=== PATIENT | female | born 1960 | race Caucasian/White ===

== ENCOUNTER 2020-05-02 13:48 | Inpatient (IN) ==
[2020-05-02] MEDS ORDERED: CeFAZolin Syr 2,000MG/20 ML 2,000 MG/20 ML SYRINGE IVPB ONE (14:08)
[2020-05-02] MEDS ORDERED: Ringers Solution, Lactated 1,000 ML IVC SCH ×2 (14:15→17:56)
[2020-05-02] MEDS ORDERED: *HR* OxyCODONE Immed Rel 5 MG TABLET PO PRN ×2 (14:38→17:56)
[2020-05-02] MEDS ORDERED: Ondansetron 4 MG/2 ML VIAL IVP ONE (14:38)
[2020-05-02] MEDS ORDERED: *HR* HYDROmorphone PF 0.5 MG/0.5 ML SYRINGE IVP PRN (14:38)
[2020-05-02] MEDS ORDERED: *HR* FentaNYL (PF) 100 MCG/2 ML VIAL ONE (15:18)
[2020-05-02] MEDS ORDERED: Ondansetron 4 MG/2 ML VIAL ONE (15:18)
[2020-05-02] MEDS ORDERED: *HR* Midazolam HCl 2 MG/2 ML VIAL ONE (15:18)
[2020-05-02] MEDS ORDERED: Dexamethasone 4 MG/ML VIAL ONE (15:18)
[2020-05-02] MEDS ORDERED: Lidocaine -MPF 2% 2 ML VIAL ONE (15:18)
[2020-05-02] MEDS ORDERED: *HR* Propofol 200 MG/20 ML VIAL IVP ONE (15:18)
[2020-05-02] MEDS ORDERED: Vancomycin 1,000 MG VIAL ONE (15:24)
[2020-05-02] MEDS ORDERED: Ethanol\\Acetic Acid\\Na Ace\\Ben 1,000 ML IRRIG.SOLN IR ONE (15:24)
[2020-05-02] MEDS ORDERED: Ropivacaine/PF 0.5% 30 ML VIAL ONE (15:24)
[2020-05-02] MEDS ORDERED: *HR* Succinylcholine 200 MG/10 ML VIAL IVP ONE (15:43)
[2020-05-02] MEDS ORDERED: Lidocaine -MPF 4% 5 ML AMPUL ONE (15:43)
[2020-05-02 17:38] LABS: Hematocrit 35.7 % (35.3-44.9); Hemoglobin 11.9 g/dL (11.5-15.4)
[2020-05-02] MEDS ORDERED: Dextrose Gel 15 GM/37.5 ML TUBE PO PRN ×2 (17:56)
[2020-05-02] MEDS ORDERED: clonazePAM 0.5 MG TABLET PO PRN (17:56)
[2020-05-02] MEDS ORDERED: *HR* OxyCODONE/APAP 5/325 TABLET PO PRN (17:56)
[2020-05-02] MEDS ORDERED: Acetaminophen/Aspirin/Caffeine TABLET PO PRN (17:56)
[2020-05-02] MEDS ORDERED: MOM Conc 10 ML UD.LIQ PO PRN (17:56)
[2020-05-02] MEDS ORDERED: Sennosides 8.6 MG TABLET PO PRN (17:56)
[2020-05-02] MEDS ORDERED: *HR* Dextrose 50 % in Water (Vial) 50 ML VIAL IVP PRN (17:56)
[2020-05-02] MEDS ORDERED: D5% in Water 1,000 ML IVC PRN (17:56)
[2020-05-02] MEDS ORDERED: Naloxone 0.4 MG/ML INJ IVP PRN (17:56)
[2020-05-02] MEDS ORDERED: Ondansetron 4 MG/2 ML VIAL IVP PRN (17:56)
[2020-05-02] MEDS: Insulin LISPRO 300 UNITS/3 ML VIAL SQ SCH (18:49)
[2020-05-02] MEDS ORDERED: Famotidine 20 MG TABLET PO SCH (21:00)
[2020-05-02] MEDS ORDERED: Insulin LISPRO 300 UNITS/3 ML VIAL SQ SCH (21:00)
[2020-05-02] MEDS: CeFAZolin 2 GM/120 ML BAG IVPB SCH (23:09)
[2020-05-03 01:51] LABS: Hemoglobin 10.4 g/dL (11.5-15.4)
[2020-05-03 01:59] LABS: BUN/Creatinine Ratio 17 (6-26); Blood Urea Nitrogen 15 mg/dL (6-20); Calcium 9.1 mg/dL (8.6-10.3); Carbon Dioxide 21 mEq/L (23-29); Chloride 100 mEq/L (98-107); Glucose 145 mg/dL (70-105); Osmolality,Calculated 273 (280-300); Potassium 4.5 mEq/L (3.5-5.1); Sodium 130 mEq/L (136-145); eGFR For African Americans > 60 (> 60); eGFR For Non-African Americans > 60 (> 60)
[2020-05-03] MEDS: Insulin LISPRO 300 UNITS/3 ML VIAL SQ SCH (08:38)
[2020-05-03] MEDS: CeFAZolin 2 GM/120 ML BAG IVPB SCH (08:50)
[2020-05-03] MEDS ORDERED: Aspirin Enteric Coated 81 MG Tablet PO SCH ×2 (09:00)
[2020-05-03] MEDS ORDERED: Triamterene/HCTZ 75/50 mg TABLET PO SCH (09:00)
[2020-05-03] MEDS ORDERED: Cyanocobalamin (B-12) 1,000 MCG TABLET PO SCH (09:00)
[2020-05-03] MEDS ORDERED: FLUoxetine 20 MG CAPSULE PO SCH (09:00)
[2020-05-03 10:07] VITALS: BP 137/86
== END 2020-05-03 12:10 | disposition home or self-care (01) | DRG 483 ==
LOC: SAMDAY 13:48 → 3NENU 17:19
PROVIDERS: ADMIT Orthopaedic Surgery; ATTEND Orthopaedic Surgery

== ENCOUNTER 2020-05-06 14:45 | Observation (INO) ==
[2020-05-06 15:29] LABS: Basophils # 0.1 K/mcL (0.0-0.2); Basophils % 0.6 %; Eosinophils # 0.1 K/mcL (0.0-0.6); Eosinophils % 1.4 %; Hematocrit 29.3 % (35.3-44.9); Hemoglobin 9.4 g/dL (11.5-15.4); Immature Granulocytes % 0.8 % (0-4); Lymphocytes # 2.5 K/mcL (0.6-4.6); Lymphocytes % 32.1 %; Mean Corpuscular HGB Conc 32.1 g/dL (31.6-35.5); Mean Corpuscular Hemoglobin 27.6 pg (28.0-33.3); Mean Corpuscular Volume 86.2 fL (83.0-100.0); Mean Platelet Volume 8.7 fL (9.4-12.4); Monocytes # 0.7 K/mcL (0.0-1.3); Monocytes % 8.9 %; Neutrophils # 4.4 K/mcL (1.6-8.9); Platelet Count 557 K/mcL (140-400); Red Cell Distribution Width 16.6 % (11.5-14.5); Segmented Neutrophils % 56.2 %; White Blood Count 7.8 K/mcL (4.3-11.1)
[2020-05-06] MEDS ORDERED: clonazePAM 0.5 MG TABLET PO STA (15:31)
[2020-05-06] MEDS ORDERED: 0.9 % Sodium Chloride 1,000 ML IVC ONE (15:33)
[2020-05-06 15:45] LABS: BUN/Creatinine Ratio 19 (6-26); Blood Urea Nitrogen 10 mg/dL (6-20); Calcium 9.4 mg/dL (8.6-10.3); Carbon Dioxide 23 mEq/L (23-29); Chloride 92 mEq/L (98-107); Glucose 94 mg/dL (70-105); Magnesium 1.7 mg/dL (1.6-2.6); Osmolality,Calculated 261 (280-300); Potassium 3.7 mEq/L (3.5-5.1); Sodium 126 mEq/L (136-145); Troponin I < 0.03 ng/mL (< 0.04); eGFR For African Americans > 60 (> 60); eGFR For Non-African Americans > 60 (> 60)
[2020-05-06] MEDS ORDERED: Ondansetron 4 MG/2 ML VIAL IVP PRN (16:37)
[2020-05-06] MEDS ORDERED: Naloxone 0.4 MG/ML INJ IVP PRN (16:37)
[2020-05-06 17:07] LABS: Thyroid Stimulating Hormone 4.477 mcIU/mL (0.340-5.600)
[2020-05-06] MEDS ORDERED: *HR* LORazepam 2 MG/ML VIAL IVP PRN ×3 (18:50)
[2020-05-06 20:06] LABS: BUN/Creatinine Ratio 20 (6-26); Blood Urea Nitrogen 9 mg/dL (6-20); Calcium 9.6 mg/dL (8.6-10.3); Carbon Dioxide 21 mEq/L (23-29); Chloride 97 mEq/L (98-107); Glucose 106 mg/dL (70-105); Osmolality,Calculated 265 (280-300); Potassium 4.1 mEq/L (3.5-5.1); Sodium 128 mEq/L (136-145); eGFR For African Americans > 60 (> 60); eGFR For Non-African Americans > 60 (> 60)
[2020-05-06] MEDS: Thiamine (B-1) 100 MG TABLET PO SCH (20:13)
[2020-05-06] MEDS: tiZANidine 4 MG TABLET PO SCH (20:13)
[2020-05-06] MEDS: Folic Acid 1 MG TABLET PO SCH (20:13)
[2020-05-06] MEDS: Vitamin B Complex/Vit C/Vit E 1 EACH TABLET PO SCH (20:13)
[2020-05-06] MEDS: *HR* OxyCODONE Immed Rel 5 MG TABLET PO PRN (20:13)
[2020-05-06 21:23] LABS: Bilirubin,Urine Negative (Negative); Blood,Urine Negative (Negative); Clarity,Urine Clear (Clear); Color,Urine Light-Yellow (Yellow); Glucose,Urine (UA) Normal (Normal); Ketones,Urine Negative (Negative); Leukocyte Esterase,Urine Negative (Negative); Nitrite,Urine Negative (Negative); Protein,Urine Negative (Neg-Trace); Specific Gravity,Urine 1.013 (1.010-1.025)
[2020-05-06 21:35] LABS: Potassium,Urine 9.5 mEq/L; Protein/Creatinine Ratio,Urine 0.19 mg/mg (0.00-0.20); Sodium, Urine 114.4 mEq/L
[2020-05-07 01:09] LABS: BUN/Creatinine Ratio 21 (6-26); Blood Urea Nitrogen 10 mg/dL (6-20); Calcium 8.7 mg/dL (8.6-10.3); Carbon Dioxide 21 mEq/L (23-29); Chloride 99 mEq/L (98-107); Glucose 119 mg/dL (70-105); Osmolality,Calculated 268 (280-300); Sodium 129 mEq/L (136-145); eGFR For African Americans > 60 (> 60); eGFR For Non-African Americans > 60 (> 60)
[2020-05-07] MEDS: Acetaminophen 325 MG TABLET PO PRN ×2 (03:28→15:35)
[2020-05-07] MEDS: clonazePAM 0.5 MG TABLET PO PRN ×2 (08:24→20:02)
[2020-05-07] MEDS: Thiamine (B-1) 100 MG TABLET PO SCH (08:25)
[2020-05-07] MEDS: Vitamin B Complex/Vit C/Vit E 1 EACH TABLET PO SCH (08:25)
[2020-05-07] MEDS: Folic Acid 1 MG TABLET PO SCH (08:25)
[2020-05-07] MEDS: Cyanocobalamin (B-12) 1,000 MCG TABLET PO SCH (08:26)
[2020-05-07] MEDS: tiZANidine 4 MG TABLET PO SCH ×3 (08:26→19:56)
[2020-05-07] MEDS: *HR* OxyCODONE Immed Rel 5 MG TABLET PO PRN ×2 (08:27→19:56)
[2020-05-07] MEDS ORDERED: FLUoxetine 20 MG CAPSULE PO SCH (09:00)
[2020-05-07 09:09] LABS: Basophils # 0.1 K/mcL (0.0-0.2); Basophils % 0.8 %; Eosinophils # 0.1 K/mcL (0.0-0.6); Eosinophils % 1.4 %; Hematocrit 29.9 % (35.3-44.9); Hemoglobin 9.4 g/dL (11.5-15.4); Immature Granulocytes % 0.8 % (0-4); Lymphocytes # 2.3 K/mcL (0.6-4.6); Lymphocytes % 34.6 %; Mean Corpuscular HGB Conc 31.4 g/dL (31.6-35.5); Mean Corpuscular Hemoglobin 27.5 pg (28.0-33.3); Mean Corpuscular Volume 87.4 fL (83.0-100.0); Mean Platelet Volume 8.7 fL (9.4-12.4); Monocytes # 0.7 K/mcL (0.0-1.3); Monocytes % 10.3 %; Neutrophils # 3.4 K/mcL (1.6-8.9); Platelet Count 565 K/mcL (140-400); Red Blood Count 3.42 M/mcL (3.82-4.97); Red Cell Distribution Width 16.9 % (11.5-14.5); Segmented Neutrophils % 52.1 %; White Blood Count 6.5 K/mcL (4.3-11.1)
[2020-05-07 09:29] LABS: Albumin 3.5 g/dL (3.5-5.7); Albumin/Globulin Ratio 1.1 (1.1-2.2); Bilirubin,Indirect 0.6 mg/dL (0.0-1.0); Bilirubin,Total 0.6 mg/dL (0.3-1.0); Globulin 3.1 g/dL (2.4-3.5); Total Protein 6.6 g/dL (6.4-8.9)
[2020-05-07 09:31] LABS: % Iron Saturation 18 % (15-50); BUN/Creatinine Ratio 21 (6-26); Blood Urea Nitrogen 9 mg/dL (6-20); Calcium 9.5 mg/dL (8.6-10.3); Carbon Dioxide 22 mEq/L (23-29); Chloride 97 mEq/L (98-107); Glucose 91 mg/dL (70-105); Iron 62 mcg/dL (50-170); Magnesium 1.9 mg/dL (1.6-2.6); Osmolality,Calculated 264 (280-300); Potassium 3.9 mEq/L (3.5-5.1); Sodium 128 mEq/L (136-145); Transferrin 247 mg/dL (203-362); eGFR For African Americans > 60 (> 60); eGFR For Non-African Americans > 60 (> 60)
[2020-05-07 09:46] LABS: Ferritin 549 ng/mL (10-120)
[2020-05-07 09:52] LABS: Folate 19.6 ng/mL (3.0-16.0)
[2020-05-07 14:39] LABS: BUN/Creatinine Ratio 21 (6-26); Blood Urea Nitrogen 11 mg/dL (6-20); Carbon Dioxide 17 mEq/L (23-29); Chloride 103 mEq/L (98-107); Glucose 111 mg/dL (70-105); Osmolality,Calculated 272 (280-300); Potassium 4.5 mEq/L (3.5-5.1); Sodium 131 mEq/L (136-145); eGFR For African Americans > 60 (> 60); eGFR For Non-African Americans > 60 (> 60)
[2020-05-08 00:41] LABS: BUN/Creatinine Ratio 25 (6-26); Blood Urea Nitrogen 11 mg/dL (6-20); Calcium 9.1 mg/dL (8.6-10.3); Carbon Dioxide 23 mEq/L (23-29); Chloride 100 mEq/L (98-107); Glucose 108 mg/dL (70-105); Osmolality,Calculated 272 (280-300); Potassium 4.1 mEq/L (3.5-5.1); Sodium 131 mEq/L (136-145); eGFR For African Americans > 60 (> 60); eGFR For Non-African Americans > 60 (> 60)
[2020-05-08] MEDS: *HR* OxyCODONE Immed Rel 5 MG TABLET PO PRN (02:51)
[2020-05-08 08:15] LABS: Basophils # 0.1 K/mcL (0.0-0.2); Basophils % 0.9 %; Eosinophils # 0.1 K/mcL (0.0-0.6); Eosinophils % 1.6 %; Hematocrit 30.1 % (35.3-44.9); Hemoglobin 9.6 g/dL (11.5-15.4); Immature Granulocytes % 2.1 % (0-4); Lymphocytes # 2.6 K/mcL (0.6-4.6); Lymphocytes % 34.3 %; Mean Corpuscular HGB Conc 31.9 g/dL (31.6-35.5); Mean Corpuscular Hemoglobin 27.7 pg (28.0-33.3); Mean Corpuscular Volume 86.7 fL (83.0-100.0); Mean Platelet Volume 9.1 fL (9.4-12.4); Monocytes # 0.9 K/mcL (0.0-1.3); Monocytes % 11.4 %; Neutrophils # 3.8 K/mcL (1.6-8.9); Platelet Count 557 K/mcL (140-400); Red Blood Count 3.47 M/mcL (3.82-4.97); Red Cell Distribution Width 17.1 % (11.5-14.5); Segmented Neutrophils % 49.7 %; White Blood Count 7.6 K/mcL (4.3-11.1)
[2020-05-08 08:24] LABS: BUN/Creatinine Ratio 25 (6-26); Blood Urea Nitrogen 10 mg/dL (6-20); Calcium 9.4 mg/dL (8.6-10.3); Carbon Dioxide 23 mEq/L (23-29); Chloride 101 mEq/L (98-107); Glucose 98 mg/dL (70-105); Magnesium 1.9 mg/dL (1.6-2.6); Osmolality,Calculated 275 (280-300); Potassium 4.5 mEq/L (3.5-5.1); Sodium 133 mEq/L (136-145); eGFR For African Americans > 60 (> 60); eGFR For Non-African Americans > 60 (> 60)
[2020-05-08] MEDS: Thiamine (B-1) 100 MG TABLET PO SCH (08:35)
[2020-05-08] MEDS: Vitamin B Complex/Vit C/Vit E 1 EACH TABLET PO SCH (08:35)
[2020-05-08] MEDS: Folic Acid 1 MG TABLET PO SCH (08:35)
[2020-05-08] MEDS: Cyanocobalamin (B-12) 1,000 MCG TABLET PO SCH (08:35)
[2020-05-08] MEDS: tiZANidine 4 MG TABLET PO SCH (08:35)
[2020-05-08] MEDS: Acetaminophen 325 MG TABLET PO PRN (08:42)
[2020-05-08 11:31] VITALS: BP 109/69
== END 2020-05-08 11:54 | disposition home or self-care (01) ==
LOC: EMEROOARM 14:45 → 3ANU 14:45 → SUATTDRO 17:36 → 3ANU 18:31
PROVIDERS: ADMIT Pharmacist; ATTEND Pharmacist